=== PATIENT | male | born 2000 | race Caucasian/White ===

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

== ENCOUNTER 2022-02-05 11:26 | Inpatient (IN) ==
[2022-02-05] MEDS ORDERED: SODIUM CHLORIDE 0.9% 1000ML 2,000 ML IV ONE (11:57)
--- NOTE | 2022-02-05 12:00 | Emergency Department Note ---
History of Present Illness General Chief complaint: Leg Weakness, Bilateral Stated complaint: RHABDMIALIUS/BILATERAL LEG PAIN HARD TO WALK Time Seen by Provider: 02/05/22 11:43 History of Present Illness Maximum Pain Intensity: 5 21-year-old male who presents to the emergency department with concern for rhabdomyolysis. The patient reports that he has had 2 previous incidences last fall with rhabdomyolysis. He required two admissions to our facility He did follow-up with [facility] who was uncertain why he was continuing to get rhabdomyolysis. The patient reports that he has been playing basketball for the past 2 months without problems. He did start to do more biceps/triceps workouts on Thursday, along with abdominal workouts. He denies any significant lower extremity workouts. He started to notice calf cramping and weakness yesterday. He denies any back pain, chest pain or upper extremity pain. The patient reports that his urine is dark over the past 12 hours. He rates his discomfort a 5 out of 10. Home Medications Medication Instructions Recorded Confirmed Type albuterol sulfate 90 mcg/actuation 1 - 2 inh INHALATION DIRECTED 06/27/21 02/05/22 History aerosol inhaler PRN Allergies Allergy/AdvReac Type Severity Reaction Status Date / Time cat dander Allergy Intermediate STUFFY Verified 02/05/22 14:09 NOSE, CONGESTION ENVIRONMENTAL Allergy Intermediate STUFFY, Uncoded 02/05/22 14:09 CONGESTION Past Med/Surg History Medical History Asthma History of rhabdomyolysis Seasonal allergies Surgical History No significant past surgical history Family History Other Family history non-contributory Social History Smoking Status: Never smoker Hx Alcohol Use: Yes Alcohol type: beer Hx Substance Use: No Preferred Language: Cook Islander Communication Ability: Effective Pattern And Chain Maker Required: No Beliefs That Will Affect Care: None Current Living Situation: Other Current Living Situation Comment: friends Feels Safe at Home: Yes Assistive Devices: None Review of Systems 10 system review was performed and was negative except for pertinent positives and negatives as indicated in history of present illness Physical Exam Vital Signs Vital Signs - 24 hr 02/05/22 11:33 02/05/22 11:57 02/05/22 13:27 Temperature 36.4 C L Temperature Source Temporal Artery Scan Pulse Rate 72 Pulse Rate [Apical] 59 L Pulse Rhythm [Apical] Regular Respiratory Rate 20 16 Respiratory Effort / Characteristics Non-Labored Spontaneous Non-Labored Respiratory Depth Normal Normal Respiratory Pattern Regular Blood Pressure 155/93 H Blood Pressure [Right Arm] 132/85 Blood Pressure Mean 113 Blood Pressure Mean [Right Arm] 100 Pulse Oximetry 97 99 99 Oxygen Delivery Method Room Air Room Air Room Air Sepsis Recent Fever Within 48 Hours No Sepsis New/Unexplained Change in Mental Status No Sepsis Action Taken by Nursing No Action Required 02/05/22 14:00 02/05/22 16:00 Temperature Temperature Source Pulse Rate Pulse Rate [Apical] 62 72 Pulse Rhythm [Apical] Regular Respiratory Rate 14 14 Respiratory Effort / Characteristics Non-Labored Non-Labored Respiratory Depth Normal Normal Respiratory Pattern Blood Pressure Blood Pressure [Right Arm] 132/82 130/78 Blood Pressure Mean Blood Pressure Mean [Right Arm] 98 95 Pulse Oximetry 99 99 Oxygen Delivery Method Room Air Room Air Sepsis Recent Fever Within 48 Hours Sepsis New/Unexplained Change in Mental Status Sepsis Action Taken by Nursing CONSTITUTIONAL: Healthy and well nourished. Alert and oriented X 3. Patient does not appear in any acute distress. HEENT: No scleral icterus or conjunctival injection. NECK: Full active range of motion without discomfort. LYMPHATICS: No cervical chain adenopathy. RESPIRATORY: Clear to auscultation bilaterally with no wheezing, crackles, rhonchi or stridor. CARDIOVASCULAR: Regular rate and rhythm with no murmurs, rubs or gallops. GASTROINTESTINAL: Bowel sounds present in all quadrants. Soft and nontender to palpation. MUSCULOSKELETAL: Examination shows no significant tenderness to palpation of bilateral calves. Tissue is soft and supple to palpation. Pedal pulses are intact. Negative logroll. Full passive range of motion of all major joints without discomfort. INTEGUMENTARY: No rash or other significant dermatologic conditions noted. HEMATOLOGIC: No ecchymosis or petechiae. PSYCHIATRIC: Positive affect. NEUROLOGIC: No focal neurologic deficits noted. Course Course Patient history and physical exam were performed. Nurses notes were reviewed. Vital signs were reviewed, showing an elevated blood pressure 155/93. The patient is otherwise not tachycardic, tachypneic or febrile. He does not appear in any acute distress. Review of prior medical record shows similar evaluations and admissions on 06/27/2021 and 08/28/2021. His peak total CK on his ED visit of 06/27 was 22,281. Peak total CK on his ED visit of 08/28 was 4819. IV access was established, and labs were drawn and reviewed, showing a total CK of 1400, otherwise remaining labs are grossly normal. Urinalysis shows trace ketonuria without proteinuria, hematuria or signs of infection. Findings were discussed with the patient, as well as our Skylights Assembler. The case was also discussed with our Mouth and a hospitalist service, who will bring the patient in for observation overnight. The patient did receive a 2 L normal saline bolus while in the emergency department. Please see hospitalist notes for further treatment and final disposition. Administered Medications Lactated Ringer's (Lr) 1,000 mls @ 150 mls/hr IV .Q6H40M FRANCES Stop: 03/07/22 13:29 Last Admin: 02/05/22 13:55 Dose: 150 mls/hr Documented by: [id number] Discontinued Medications Sodium Chloride (Nss 1000ml) 2,000 mls @ 999 mls/hr IV .Q2H1M ONE Stop: 02/05/22 13:57 Last Infusion: 02/05/22 13:58 Dose: 0 mls/hr Documented by: [id number] Admin: 02/05/22 12:03 Dose: 999 mls/hr Documented by: [id number] Medical Decision Making Medical Records Attestation: I reviewed the patient's medical records. Home Medications Current Medication List: was personally reviewed by vt Laboratory Data Attestation: I reviewed the patient's lab results. Result diagrams: 02/05/22 11:50 02/05/22 11:50 Lab Results 02/05/22 02/05/22 02/05/22 Range/Units 11:50 11:50 11:50 WBC 4.50 L (4.8-10.8) K/uL RBC 4.59 L (4.7-6.1) M/uL Hgb 14.2 (14.0-18.0) g/dL Hct 42.9 (42-52) % MCV 93.5 (80-100) fL MCH 30.9 (25-34) pg MCHC 33.1 (32-36) g/dL RDW Std Deviation 42.0 (36.4-46.3) fL RDW Coeff of Raina 12.3 (11.5-14.5) % Plt Count 261 (130-400) K/uL MPV 9.7 (7.4-10.4) fL Immature Gran % (Auto) 0.2 % Neut % (Auto) 43.4 % Lymph % (Auto) 40.4 % Cocke % (Auto) 11.6 % Eos % (Auto) 4.0 % Baso % (Auto) 0.4 % Neut # (Auto) 1.95 (1.4-6.5) K/uL Lymph # (Auto) 1.82 (1.2-3.4) K/uL Cocke # (Auto) 0.52 (0.11-0.59) K/uL Eos # (Auto) 0.18 (0-0.5) K/uL Baso # (Auto) 0.02 (0-0.2) K/uL Immature Gran # (Auto) 0.01 (0.00-0.02) K/uL Sodium 137 (136-145) mmol/L Potassium 4.2 (3.5-5.1) mmol/L Chloride 103 (98-107) mmol/L Carbon Dioxide 30 (21-32) mmol/L Anion Gap 4 (3-11) BUN 12 (6-23) mg/dl Creatinine 1.06 (0.6-1.4) mg/dl Est Cr Clr Drug Dosing Not Reportable Est GFR ( Amer) 117.3 ml/min Est GFR (Non-Af Amer) 101.2 ml/min BUN/Creatinine Ratio 11.3 (10-20) Glucose 84 (70-99(Fasting)) mg/dl Calcium 9.3 (8.5-10.1) mg/dl Phosphorus 3.2 (2.5-4.9) mg/dl Magnesium 2.0 (1.7-2.4) mg/dl Total Bilirubin 0.6 (0.2-1.0) mg/dl AST 39 (13-39) U/L ALT 23 (7-52) U/L Alkaline Phosphatase 103 (34-104) U/L Total Creatine Kinase 1400 H (30-223) U/L Total Protein 7.3 (6.0-8.3) gm/dl Albumin 4.5 (3.4-5.0) gm/dl Globulin 2.8 (2.5-4.0) gm/dl Albumin/Globulin Ratio 1.6 (0.9-2) Urine Color Urine Appearance (Clear) Urine pH (4.5-7.5) Ur Specific [place] (1.000-1.030) Urine Protein (Negative) Urine Glucose (UA) (Negative) Urine Ketones (Negative) Urine Blood (Negative) Urine Nitrite (Negative) Urine Bilirubin (Negative) Urine Urobilinogen (Negative) Ur Leukocyte Esterase (Negative) SARS-CoV-2, RNA, NAAT (NEGATIVE) 02/05/22 02/05/22 Range/Units 11:55 13:35 WBC (4.8-10.8) K/uL RBC (4.7-6.1) M/uL Hgb (14.0-18.0) g/dL Hct (42-52) % MCV (80-100) fL MCH (25-34) pg MCHC (32-36) g/dL RDW Std Deviation (36.4-46.3) fL RDW Coeff of Raina (11.5-14.5) % Plt Count (130-400) K/uL MPV (7.4-10.4) fL Immature Gran % (Auto) % Neut % (Auto) % Lymph % (Auto) % Cocke % (Auto) % Eos % (Auto) % Baso % (Auto) % Neut # (Auto) (1.4-6.5) K/uL Lymph # (Auto) (1.2-3.4) K/uL Cocke # (Auto) (0.11-0.59) K/uL Eos # (Auto) (0-0.5) K/uL Baso # (Auto) (0-0.2) K/uL Immature Gran # (Auto) (0.00-0.02) K/uL Sodium (136-145) mmol/L Potassium (3.5-5.1) mmol/L Chloride (98-107) mmol/L Carbon Dioxide (21-32) mmol/L Anion Gap (3-11) BUN (6-23) mg/dl Creatinine (0.6-1.4) mg/dl Est Cr Clr Drug Dosing Est GFR ( Amer) ml/min Est GFR (Non-Af Amer) ml/min BUN/Creatinine Ratio (10-20) Glucose (70-99(Fasting)) mg/dl Calcium (8.5-10.1) mg/dl Phosphorus (2.5-4.9) mg/dl Magnesium (1.7-2.4) mg/dl Total Bilirubin (0.2-1.0) mg/dl AST (13-39) U/L ALT (7-52) U/L Alkaline Phosphatase (34-104) U/L Total Creatine Kinase (30-223) U/L Total Protein (6.0-8.3) gm/dl Albumin (3.4-5.0) gm/dl Globulin (2.5-4.0) gm/dl Albumin/Globulin Ratio (0.9-2) Urine Color Yellow Urine Appearance Clear (Clear) Urine pH 5.5 (4.5-7.5) Ur Specific [place] 1.027 (1.000-1.030) Urine Protein Negative (Negative) Urine Glucose (UA) Negative (Negative) Urine Ketones Trace H (Negative) Urine Blood Negative (Negative) Urine Nitrite Negative (Negative) Urine Bilirubin Negative (Negative) Urine Urobilinogen Negative (Negative) Ur Leukocyte Esterase Negative (Negative) SARS-CoV-2, RNA, NAAT NEGATIVE (NEGATIVE) Blood Pressure Blood Pressure Findings: Elevated blood pressure MDM Narrative Has history of recurrent rhabdomyolysis of unknown etiology. Although his episodes have been triggered by workouts. The patient has had evaluation with orthopedics in the outpatient setting with no known suggestions for his recurrent rhabdomyolysis. Patient does appear to have mild rhabdomyolysis with a total CK count of 1400. Laboratory studies are not suggestive of acute kidney injury. Impression & Plan Rhabdomyolysis, Bilateral leg pain, Bilateral leg weakness Discharge Plan Visit Data Chief Complaint: Leg Weakness, Bilateral Stated Complaint: RHABDMIALIUS/BILATERAL LEG PAIN HARD TO WALK ED Provider: Jayson Daniel ED Midlevel Provider: Jose Eduardo Echeverria Discharge Problem: Rhabdomyolysis, Bilateral leg pain, Bilateral leg weakness Forms Stand Alone Forms: [facility] [employer] Prescriptions Prescriptions: No Action albuterol sulfate 90 mcg/actuation Hfa Aerosol Inhaler 1 - 2 inh INHALATION DIRECTED PRN (Reason: Shortness Of Breath) RF: 0 Referrals Referrals: [facility] [Primary Care Provider] - Discharge Problem: Rhabdomyolysis Qualifiers: Rhabdomyolysis type: non-traumatic Qualified Code(s): M62.82 - Rhabdomyolysis
[2022-02-05 12:23] LABS: Basophils # (auto) 0.02 K/uL (0-0.2); Basophils % (auto) 0.4 %; Eosinophils # (auto) 0.18 K/uL (0-0.5); Hematocrit (blood only) 42.9 % (42-52); Hemoglobin 14.2 g/dL (14.0-18.0); Immature Granulocytes # (auto) 0.01 K/uL (0.00-0.02); Immature Granulocytes % (auto) 0.2 %; Lymphocytes # (auto) 1.82 K/uL (1.2-3.4); Lymphocytes % (auto) 40.4 %; Mean Corpuscular Hemoglobin 30.9 pg (25-34); Mean Corpuscular Hgb Conc 33.1 g/dL (32-36); Mean Corpuscular Volume 93.5 fL (80-100); Mean Platelet Volume 9.7 fL (7.4-10.4); Monocytes # (auto) 0.52 K/uL (0.11-0.59); Monocytes % (auto) 11.6 %; Neutrophils # (auto) 1.95 K/uL (1.4-6.5); Neutrophils % (auto) 43.4 %; Platelet Count 261 K/uL (130-400); RDW Coefficient of Variation 12.3 % (11.5-14.5); Red Blood Count 4.59 M/uL (4.7-6.1)
[2022-02-05 12:34] LABS: Alanine Aminotransferase 23 U/L (7-52); Albumin Globulin Ratio 1.6 (0.9-2); Albumin Level 4.5 gm/dl (3.4-5.0); Alkaline Phosphatase 103 U/L (34-104); Anion Gap 4 (3-11); Aspartate Aminotransferase 39 U/L (13-39); BUN Creatinine Ratio 11.3 (10-20); Bilirubin,Total 0.6 mg/dl (0.2-1.0); Blood Urea Nitrogen 12 mg/dl (6-23); Calcium 9.3 mg/dl (8.5-10.1); Carbon Dioxide 30 mmol/L (21-32); Chloride 103 mmol/L (98-107); Creatine Kinase 1400 U/L (30-223); Est GFR (African American) 117.3 ml/min; Est GFR (Non-African American) 101.2 ml/min; Globulin 2.8 gm/dl (2.5-4.0); Glucose 84 mg/dl (70-99(Fasting)); Potassium 4.2 mmol/L (3.5-5.1); Sodium 137 mmol/L (136-145); Total Protein 7.3 gm/dl (6.0-8.3)
[2022-02-05 12:36] LABS: Appearance Urine Clear (Clear); Bilirubin Urine Negative (Negative); Blood Urine Negative (Negative); Color Urine Yellow; Glucose Urine UA Negative (Negative); Ketones Urine Trace (Negative); Leukocyte Esterase Urine Negative (Negative); Nitrite Urine Negative (Negative); Protein Urine Negative (Negative); Specific Gravity Urine 1.027 (1.000-1.030); Urobilinogen Urine Negative (Negative); pH Urine 5.5 (4.5-7.5)
--- NOTE | 2022-02-05 13:44 | History & Physical Report ---
Date of Service February 05, 2022 Assessment & Plan (1) Rhabdomyolysis: Plan: Rhabdomyolysis in the setting of exercising. 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 - Renal function normal and no anion gap - Continue with LR at 150ml/hr and water intake- follow urine output - UA unremarkable but noted for ketones - no elevation of LFTs associated with his rhabdo this admission - options for the above metabolic myopathy or mitochondrial process could send serum fatty acid beta oxidation (Acylcarnitine profile if desired) and/or muscle biopsy- 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 Patient comes in today for lower leg pain. Patient has history of Rhabdomyolysis occurring 2 other times in 07/09 and 09/08- comes to the EMD today for complaints of lower extremity pain and noted to have elevated CK level at 1400 and dark colored urine. The patient endorses that he continues to play basketball for 3-4 hours per day and does an arm workout throughout the week following basketball. Previous admissions he was doing basketball plus running and leg workout, patient endorses that he does not do that anymore. He denies any workout or pre-workout supplements. No changes in medications. Patient states he started playing basketball yesterday and his legs started to hurt so he did stop- he drank ~ 3 of the Gatorade water bottles of water following that. He got up this morning with worsening of his leg pain so came to the EMD. He is able to walk this time and without weakness. Patient was to follow up with sports medicine following last discharge in August- he did go to this appointment and from his report appears to have done compartment pressure monitoring and discussed muscle biopsy, but declined. Quite possible at this point there may be some metabolic or mitochondrial process giving him higher risk/incidence of rhabdo- worth discussing with his PCP. Patient will be admitted continue with IVF and oral intake and guide therapy towards urine output. Allergies Allergy/AdvReac Type Severity Reaction Status Date / Time cat dander Allergy Intermediate STUFFY Verified 02/05/22 14:09 NOSE, CONGESTION Home Medications Medication Instructions Recorded Confirmed Type albuterol sulfate 90 mcg/actuation 1 - 2 inh INHALATION DIRECTED 06/27/21 02/05/22 History aerosol inhaler PRN Past Med/Surg History Medical History Asthma History of rhabdomyolysis Seasonal allergies Surgical History No significant past surgical history Family History Other Family history non-contributory Social History Smoking Status: Never smoker Second Hand Exposure: No; Do You Dip or Chew Tobacco: No; Tobacco Cessation Education Requested by Patient: No Hx Alcohol Use: No Hx Substance Use: No Preferred Language: Andorran Communication Ability: Effective Human Resources Manager Required: No Beliefs That Will Affect Care: None Current Living Situation: Other Current Living Situation Comment: campus Other Information That Helps Us Care for You: No Feels Safe at Home: Yes Safety Concerns: Feels Safe At This Time Assistive Devices: None Review of Systems Review of Systems: REVIEW OF SYSTEMS: Constitutional: No fever, sweats or chills Eyes: No diplopia, no worsening or blurred vision ENT: normal hearing, no trouble swallowing Respiratory: No cough, sputum, dyspnea at rest or on exertion Cardiovascular: No chest pain, tightness or palpitations Abdomen: No pain, nausea, vomiting, diarrhea or constipation Musculoskeletal: (+) posterior calf pain and quad pain, No joint pain, calf pain, swelling Neurologic: No weakness, numbness/tingling, or balance problems Psychiatric: No anxiety or depression Skin: No rash or itch Physical Exam Physical Exam: PHYSICAL EXAM: General: awake, alert, no apparent distress Head: Normocephalic, atraumatic ENT: PERRL, EOMI, no pharyngeal exudate, mucous membranes moist Neuro: AAO x 3, speech clear and appropriate, strength intact bilaterally 5/5, sensation intact and equal all extremities and dermatomes, no pronator drift Chest: equal rise and fall of the chest, no accessory muscle use, no heaves or thrills, Clear to auscultation, on room air, Cardiac: Regular rate and rhythm, telemetry reviewed, skin warm dry, cap refill <3 seconds, peripheral pulses +2 no JVD, no murmur, no edema GI: NABS x 4 quadrants, soft, nontender to palpation, no rebound, guarding or tenderness : Spontaneously voiding, no pain, no CVA tenderness, Extremities: Normal inspection, no peripheral edema or erythema, tender to palpation to calves, old bruise noted on left anterior medial ojeda Psych: Normal mood and affect Results & Data Results & Data ([facility]) Vital Signs (Past 12 Hours) Vital Signs Temp Pulse Resp BP Pulse Ox 02/05/22 11:57 99 02/05/22 11:33 36.4 C L 72 20 155/93 H 97 Laboratory Results Abnormal lab results 02/05/22 02/05/22 02/05/22 Range/Units 11:50 11:50 11:55 WBC 4.50 L (4.8-10.8) K/uL RBC 4.59 L (4.7-6.1) M/uL Total Creatine Kinase 1400 H (30-223) U/L Urine Ketones Trace H (Negative) Diagnostic Findings None Medications Administered Sodium Chloride (Nss 1000ml) 2,000 mls @ 999 mls/hr IV .Q2H1M ONE Stop: 02/05/22 13:57 Last Admin: 02/05/22 12:03 Dose: 999 mls/hr Documented by: [id number] Home Medications albuterol sulfate 90 mcg/actuation aerosol inhaler 1 - 2 inh INHALATION DIRE CTED PRN 06/27/21 [History Confirmed 08/28/21] fexofenadine 180 mg tablet (Allergy Relief (fexofenadine)) 180 mg PO DAILY PRN 06/27/21 [History Confirmed 08/28/21] Active Medications Sodium Chloride (Nss 1000ml) 2,000 mls @ 999 mls/hr IV .Q2H1M ONE Stop: 02/05/22 13:57 Last Admin: 02/05/22 12:03 Dose: 999 mls/hr Documented by: Lactated Ringer's (Lr) 1,000 mls @ 150 mls/hr IV .Q6H40M [facility] Stop: 03/07/22 13:29 ECG Additional Comments: Normal sinus rhythm with sinus arrhythmia Normal ECG When compared with ECG of 28-AUG-2021 09:56, No significant change was found Code Status & VTE Plan Code Status CODE: FULL VTE: SCDS, ambulation VTE Prophylaxis Plan VTE Prophylaxis will be ordered: Yes Supervising Physician Co-Signing Physician Notes I supervised DIOR Moses on this admission. I interviewed and examined the patient independently of him. The plan is as written in his note except for any following changes/exceptions: None Patient seen a few hours later than admitter. Urine has already cleared to light yellow. He stopped working out earlier than previously. He otherwise is doing well. He did undergo his testing for calf compartment syndrome, but reports the testing was not helpful as it gave mixed results. We discussed the possibility of further testing such as myopathy or mitochondrial issue. He had a negative experience with the compartment testing, and is not sure if he will pursue this further as he feels that he has been improving his adjustment of his workouts. PG Care Time/CCT Total # of Minutes Spent Total Time Spent with Patient: Total time spent is greater than 50% in coordination of care (as documented) at patient's floor/unit and/or counseling patient: Coding Level of Care Code 58046 Initial Inpt Care Lvl 2 Diagnoses Bilateral leg pain M79.604; M79.605 Rhabdomyolysis T79.6XXA Encounter type: initial encounter Rhabdomyolysis type: traumatic Asthma J45.909 Seasonal allergies J30.2 (1) Rhabdomyolysis Encounter type: initial encounter Rhabdomyolysis type: traumatic Qualified Code(s): T79.6XXA - Traumatic ischemia of muscle, initial encounter
[2022-02-05] MEDS: LACTATED RINGER'S 1,000 ML IV SCH ×2 (13:55→20:27)
--- NOTE | 2022-02-05 15:48 | Electrocardiogram Report ---
Test Reason : Blood Pressure : / mmHG Vent. Rate : 061 BPM Atrial Rate : 061 BPM P-R Int : 154 ms QRS Dur : 106 ms QT Int : 446 ms P-R-T Axes : 041 061 020 degrees QTc Int : 448 ms Normal sinus rhythm with sinus arrhythmia Normal ECG When compared with ECG of 28-AUG-2021 09:56, No significant change was found Confirmed by Andrews Carvajal ([id number]) on 02/05/2022 3:48:05 PM Referred By: Confirmed By:Antonio Carvajal
[2022-02-05] MEDS ORDERED: FEXOFENADINE HCL 180 MG TAB PO PRN (16:41)
[2022-02-05] MEDS ORDERED: ACETAMINOPHEN 325 MG TAB PO PRN (16:41)
[2022-02-05] MEDS ORDERED: ALBUTEROL HFA 8 GM INHALER INH PRN (16:41)
[2022-02-06] MEDS: LACTATED RINGER'S 1,000 ML IV SCH ×2 (03:04→09:47)
[2022-02-06 08:41] LABS: Basophils # (auto) 0.01 K/uL (0-0.2); Basophils % (auto) 0.2 %; Eosinophils # (auto) 0.18 K/uL (0-0.5); Eosinophils % (auto) 3.6 %; Hematocrit (blood only) 42.6 % (42-52); Immature Granulocytes # (auto) 0.02 K/uL (0.00-0.02); Immature Granulocytes % (auto) 0.4 %; Lymphocytes # (auto) 2.43 K/uL (1.2-3.4); Lymphocytes % (auto) 48.4 %; Mean Corpuscular Hemoglobin 31.2 pg (25-34); Mean Corpuscular Hgb Conc 32.9 g/dL (32-36); Mean Corpuscular Volume 94.9 fL (80-100); Mean Platelet Volume 9.8 fL (7.4-10.4); Monocytes # (auto) 0.51 K/uL (0.11-0.59); Monocytes % (auto) 10.2 %; Neutrophils # (auto) 1.87 K/uL (1.4-6.5); Neutrophils % (auto) 37.2 %; Platelet Count 253 K/uL (130-400); RDW Coefficient of Variation 12.2 % (11.5-14.5); RDW Standard Deviation 42.2 fL (36.4-46.3); Red Blood Count 4.49 M/uL (4.7-6.1); White Blood Count 5.02 K/uL (4.8-10.8)
[2022-02-06 09:13] LABS: BUN Creatinine Ratio 10.2 (10-20); Calcium 9.1 mg/dl (8.5-10.1); Creatinine Clr Calc Pharmacy 170.2 ml/min; Est GFR (Non-African American) 111.3 ml/min; Phosphorus 5.2 mg/dl (2.5-4.9); Potassium 4.2 mmol/L (3.5-5.1)
--- NOTE | 2022-02-06 13:15 | Med Student Discharge Summary ---
Date of Service February 06, 2022 Admission HPI Per Admitting Provider 21 YOM with past medical history of: seasonal allergies and childhood asthma. Patient comes in today for lower leg pain. Patient has history of Rhabdomyolysis occurring 2 other times in 07/09 and 09/08- comes to the [facility] today for complaints of lower extremity pain and noted to have elevated CK level at 1400 and dark colored urine. The patient endorses that he continues to play basketball for 3-4 hours per day and does an arm workout throughout the week following basketball. Previous admissions he was doing basketball plus running and leg workout, patient endorses that he does not do that anymore. He denies a ny workout or pre-workout supplements. No changes in medications. Patient states he started playing basketball yesterday and his legs started to hurt so he did stop- he drank ~ 3 of the Gatorade water bottles of water following that. He got up this morning with worsening of his leg pain so came to the EMD. He is able to walk this time and without weakness. Patient was to follow up with sports medicine following last discharge in August- he did go to this appointment and from his report appears to have done compartment pressure monitoring and discussed muscle biopsy, but declined. Quite possible at this point there may be some metabolic or mitochondrial process giving him higher risk/incidence of rhabdo- worth discussing with his PCP. Patient will be admitted continue with IVF and oral intake and guide therapy towards urine output. Admission Exam (Per Admitting) Constitutional PHYSICAL EXAM: General: awake, alert, no apparent distress Head: Normocephalic, atraumatic ENT: PERRL, EOMI, no pharyngeal exudate, mucous membranes moist Neuro: AAO x 3, speech clear and appropriate, strength intact bilaterally 5/5, sensation intact and equal all extremities and dermatomes, no pronator drift Chest: equal rise and fall of the chest, no accessory muscle use, no heaves or thrills, Clear to auscultation, on room air, Cardiac: Regular rate and rhythm, telemetry reviewed, skin warm dry, cap refill <3 seconds, peripheral pulses +2 no JVD, no murmur, no edema GI: NABS x 4 quadrants, soft, nontender to palpation, no rebound, guarding or tenderness : Spontaneously voiding, no pain, no CVA tenderness, Extremities: Normal inspection, no peripheral edema or erythema, tender to palpation to calves, old bruise noted on left anterior medial ojeda Psych: Normal mood and affect Discharge Exam General: Awake and oriented x 3, no acute distress Cardiac: Regular rate and rhythm, no murmurs/rubs/gallops, palpable peripheral pulses, no edema Pulm: clear to auscultation, no wheezes/rales/rhonchi, no clubbing GI: Nl bowel sounds, No tenderness to palpation, no rebound, guarding or tenderness Extremities: Normal inspection, no peripheral edema or erythema, nontender to palpation to calves, Hospital Course (1) Rhabdomyolysis: 21 yo male with history of two prior episodes of rhabdomyolysis presented with calf pain, dark urine, and elevated CK at 1400. During his hospital course he was managed with IV fluids, his CK downtrended from 1400 to 1171, and his calf pain resolved. No blood detected on UA. He had no electrolyte abnormalities or decline in kidney function. He had improvement in symptoms overnight, making him stable for discharge to home. He has been previously worked up for compartment syndrome but the results where borderline high/inconclusive. His symptoms are mainly isolated to his calves, so further investigation for repeat compartment syndrome testing, muscular dystrophy, or metabolic myopathies may be warranted. We recommended following up with [facility] or [facility] neuromuscular specialists. (2) Asthma: Had asthma as a child and has not required use of his inhalers often. Did not require management during this hospitalization. (3) Seasonal allergies: Allergies during change of season. Use Darron but has tried Zyrtec and Claritin in the past. Advised to try and avoid use of an anti-histamine because its possible contribution to rhabdomyolysis. Discharge to home, avoid exercise for 1 week, hydrate Follow-up with [facility] within 1-2 weeks Follow-up with a neuromuscular specialist this spring/summer for further workup Discharge Plan Discharge Items Patient Disposition: Home - Self-Care Reason For Visit: LEG PAIN ELEVATED CK Discharge Diagnosis: Rhabdomyolysis Activity: Per Instructions section Exercise/Sports: Wait until after follow-up appointment Driving/Machine Use: No limitations Weightbearing: Full weightbearing Non-emergency contact: Primary Care Provider Call non-emergency contact if: your pain is worsening Follow-up/Referrals: [facility] [Primary Care Provider] - 02/10/22 9:20 am (arrive 10-15 mins early for your appointment) Diet: Regular Addtl Attending Provider Instructions: You were admitted to the hospital for rhabdomyolysis. You were treated with IV fluids and rest. Your elevated CK (creatine kinase) level, which is a byproduct of muscle breakdown, has started to return to normal, and so we feel it is safe for you to continue your recovery from home. A discharge summary will be sent to your primary care physician to ensure continuity of care. Please bring this discharge summary with you to your next office appointment so that your provider can review it at that time. Follow-up appointments: Make a follow-up appointment with S within the next two weeks. It is very important that you follow up with them shortly after discharge from the hospital. We recommend following up with a neuromuscular specialist for further investigation into why you have had multiple episodes of rhabdomyolysis. We recommend Dr. Chavez at [facility] (phone: [phone]), but there may be other specialists closer to your home. We recommend calling [facility] to see if they have similar specialists. The phone number to speak with [facility] is . Keep all your follow-up appointments as already scheduled. If you cannot make an appointment, notify your provider. Activity: Avoid strenuous activity until you follow up with a neuromuscular specialist; upper body exercises are okay, but you should avoid exercises that require lower body strength, including running Drink plenty of fluids, especially when physically active or if you're outside in warm weather Avoid drinking alcohol, as heavy alcohol use may increase your risk for rhabdomyolysis Medications: Your medication list has been reviewed and reconciled upon discharge to ensure accuracy and continuity of care. An updated list of all your medications is included with your hospital discharge paperwork. Please review this list closely, and make note of any changes. Take your medications as instructed; do not skip a dose of your medicines. Make sure all of your doctors know every medicine you are taking (including ohxn-vas-atctzid medicines, vitamins, and supplements). Call your primary care provider before taking any new medicines (including pmzq-ist-vfmpoga medicines, vitamins, and supplements), because some of these may interact with your current medications, or may make your symptoms worse. Tell your primary care provider if you cannot afford your medications. CONTACT YOUR PRIMARY CARE PROVIDER if you experience any of the following: Urine that is dark, tea-colored, or has blood in it Urinating less than usual, or inability to urinate Pain, swelling, or weakness in your arms or legs that does not go away or gets worse Difficulty following your treatment plan CALL 911 OR GO TO THE EMERGENCY DEPARTMENT if you experience any of the following: Sudden, severe abdominal pain or nausea/vomiting Severe chest pain, or chest pain that radiates (moves) to your jaw or arm Sudden, severe shortness of breath or difficulty breathing Thank you for allowing us to participate in your care. Pending Studies at Discharge: No Stand-Alone Forms: My [facility] [employer], Work/School Release Medications and DC Order Prescriptions: Continued albuterol sulfate 90 mcg/actuation Hfa Aerosol Inhaler 1 - 2 inh INHALATION DIRECTED PRN (Reason: Shortness Of Breath) RF: 0 Discharge Orders: Discharge Order (Routine); Ordered 02/06/22 Ordered By: Walker Sanford/Other Patient Handouts: Rhabdomyolysis, ED Dehydration (Adult), ED Rhabdomyolysis Admission Data Admit Date/Time: 02/05/22 13:32 Attending Provider: Vladimir Rodriguez Admit Provider: Karthikeyan Iqbal Primary Care Provider: [facility] Other Interventions: Discharge Summary Assessment (RN) Last Done: 02/06/22 13:34 Supervising Attestation Patient seen and examined with medical student Angelina Jones. Agree with history, exam findings, assessment and plan of care as outlined. In brief, Perry is a 21 year old male with hx of prior hospital admissions for rhabdomyolysis admitted with rhabdomyolysis. On admission, CK was 1400 and has now trended down. Calf pain is completely resolved at this point. Urine is not dark appearing. We reviewed the lower leg compartment testing that was done by sports medicine--borderline--in the past. No supplements, stimulants, alcohol. He has no history of sickle cell trait. He does take darron, but has been on this for many years and has not had an issue and does not consistently take this. Vital signs and nursing notes reviewed. Well appearing, non-toxic Heart with regular rate and rhythm Lungs are clear to auscultation. Calves are soft, non-tender. Labs and imaging reviewed. 1. rhabdo. resolving with rest and IVFs. Renal function is normal. I strongly suspect this is related to a lower leg compartment issue given that his symptoms really only occur in the legs and not the upper extremities, even with vigorous activity of the upper extremities. Limit physical activity for now. He can do upper body resistance activity or arm bike if he wishes. He should follow up with S in 1-2 weeks. Suggested that he follow up with a neuromusuclar neurologist as well. He can see Cruz Chavez at [facility]. [facility] is closer to his home in [place]--he can call [facility] neurology and they can direct to the correct specialist for additional testing. Dispo: discharge home today. I personally spent 25 minutes discharge planning for this patient.
== END 2022-02-06 14:06 | disposition home or self-care (01) | DRG 558 ==
LOC: ED 11:26 → SUATTDRO 13:32 → 3W 13:32